=== PATIENT | female | born 1970 | race Caucasian/White ===

== ENCOUNTER → 2020-11-03 11:31 | Outpatient (CLI) | payer MEDICAID, SELFPAY ==
[2020-11-03 15:18] LABS: Absolute Lymphocyte Count 2.02 X10^3/uL (0.83-4.51); Absolute Neutrophil Count 7.8 X10^3/uL (2.0-7.7); Basophil# 0.06 X10^3/uL; Basophil% 0.6 % (0-1); Eosinophil# 0.21 X10^3/uL; Hematocrit 45.5 % (37-47); Hemoglobin 14.4 g/dL (12.0-15.0); Lymphocyte # 2.02 X10^3/ul (4.0); Lymphocyte % 18.8 % (19-41); Mean Corp Hgb Conc 31.6 g/dL (32-36); Mean Corpuscular Hgb 27.2 pg (27.0-32.0); Mean Platelet Vol. 12.7 fl (6.2-12.0); Monocyte# 0.65 X10^3/uL; NRBC Flagged by Analyzer 0 % (0-5); Neutrophil # 7.78 X10^3/uL (2.7-7.7); Neutrophil % 72.3 % (47-70); Platelet Count 287 K/mm3 (150-450); RBC Distribution Width CV 14.9 % (11.6-14.6); RBC Distribution Width SD 46.7 fl (35.1-43.9); Red Blood Count 5.29 M/mm3 (4.2-5.4); White Blood Count 10.8 K/mm3 (4.4-11.0)
[2020-11-03 15:45] LABS: ALB/GLOB Ratio 0.9 RATIO (0.9-2.4); AST(SGOT) 11 U/L (15-37); Alanine Aminotransfer ALT/SGPT 27 U/L (13-56); Albumin, Serum 3.7 g/dL (3.2-5.0); Alkaline Phosphatase 62 U/L (45-117); Anion Gap 5 (5-15); BUN 15 mg/dL (7-18); BUN/Creat Ratio 24.2 RATIO (10-20); Calcium,Total 9.2 mg/dL (8.5-10.1); Chloride 106 mmol/L (98-107); Cholesterol 155 mg/dL (200); Creatinine, Serum 0.62 mg/dL (0.55-1.02); EST Glomerular Filtration Rate 109 mL/min (>60); Est Glom Filt Rate - Afr Amer 132 mL/min (>60); Globulin 3.9 g/dL (2.2-4.2); Glucose 93 mg/dL (74-106); High Density Lipoprotein 58 mg/dL; Potassium 4.1 mmol/L (3.5-5.1); Protein, Total 7.6 g/dL (6.4-8.2); Sodium Level 139 mmol/L (136-145); Triglycerides 69 mg/dL; Very Low Density Lipoprotein 14 mg/dL (5-40)
[2020-11-03 15:46] LABS: Microalbumin,Random Urine 5.9 mg/L (NO RANGE EST.); Microalbumin:Creatinine Ratio 8.7 mg/g CRE (<30 mg/g CRE)
[2020-11-03 15:53] LABS: Vitamin D,25 Hydroxy 48.2 ng/mL
== END ==
PROVIDERS: PCP Family Medicine; Referring Provider Family Medicine; Visit Provider Family Medicine
DX: Z20.822 Contact with and (suspected) exposure to COVID-19 (principal); E11.9 Type 2 diabetes mellitus without complications; E55.9 Vitamin D deficiency, unspecified; D64.9 Anemia, unspecified; Z51.81 Encounter for therapeutic drug level monitoring
CPT/HCPCS: 36415; 80053; 80061; 82043; 82306; 82570; 85025; 86769; 86900; 86901

== ENCOUNTER → 2022-09-27 | Outpatient (CLI) | payer MEDICAID, SELFPAY ==
--- NOTE | 2022-09-27 08:21 | US_ITS ---
STUDY: ABDOMINAL ULTRASOUND - RIGHT UPPER QUADRANT REASON FOR VISIT: Female, 51 years old ABD PAIN/BLOATING TECHNIQUE: Ultrasound evaluation of the right upper quadrant was performed with real-time and static mendoza-scale imaging. TECHNICAL QUALITY: Adequate. COMPARISON: None. FINDINGS: Liver: The liver measures 17.4 cm. There is increased echogenicity consistent with fatty infiltration. The bile ducts are within normal limits. There is hepatic color flow. The direction of portal flow is hepatopetal. There is no demonstrated mass lesion. Gallbladder: There is a contracted gallbladder. The gallbladder wall is thickened and measures 4.1 mm. There is a negative sonographic Capellan''s sign. There is no pericholecystic fluid. There are multiple echogenic structures within the gallbladder, consistent with multiple gallstones. Common Bile Duct (C.B.D.): The common bile duct measures 5.2 mm. Pancreas: Normal size of the head, body and tail of the pancreas. There is increased echogenicity of the pancreas. There is no demonstrated pancreatic mass or cyst. Right Kidney: Normal size of the right kidney. The right kidney measures 11.4 cm x 5.8 cm x 5.5 cm. Normal renal cortex. The right cortex measures 2.0 cm. There is no demonstrated renal mass or cyst. There is no right hydronephrosis. US/Abdomen Limited IMPRESSION: Contracted stone filled gallbladder. Fatty infiltration of the liver. Electronically Signed: Juan Carlos Ellsworth MD at 12:41 EST ,
== END | disposition home or self-care (01) ==
LOC: US 08:19
PROVIDERS: PCP Family Medicine; Referring Provider Family Medicine; Visit Provider Family Medicine
DX: R10.11 Right upper quadrant pain (principal); R14.0 Abdominal distension (gaseous)
CPT/HCPCS: 76705

== ENCOUNTER → 2022-10-26 | Outpatient (CLI) | payer MEDICAID, SELFPAY ==
[2022-10-26 15:05] LABS: Absolute Lymphocyte Count 2.54 X10^3/uL (0.83-4.51); Absolute Neutrophil Count 5.1 X10^3/uL (2.0-7.7); Basophil# 0.06 X10^3/uL; Basophil% 0.7 % (0-1); Eosinophil# 0.25 X10^3/uL; Eosinophils% 2.9 % (0-5); Hematocrit 45.8 % (37-47); Hemoglobin 14.4 g/dL (12.0-15.0); Lymphocyte # 2.54 X10^3/ul (0.83-4.51); Lymphocyte % 29.9 % (19-41); Mean Corp Hgb Conc 31.4 g/dL (32-36); Mean Corpuscular Hgb 27.7 pg (27.0-32.0); Mean Corpuscular Volume 88.1 fL (81-99); Mean Platelet Vol. 12.1 fl (6.2-12.0); Monocyte# 0.53 X10^3/uL; Monocyte% 6.2 % (0-10); NRBC Flagged by Analyzer 0 % (0-5); Neutrophil % 60.1 % (47-70); Platelet Count 253 K/mm3 (150-450); RBC Distribution Width CV 14.1 % (11.6-14.6); RBC Distribution Width SD 45.5 fl (35.1-43.9); White Blood Count 8.5 K/mm3 (4.4-11.0)
== END | disposition home or self-care (01) ==
LOC: PAVLAB 14:41
PROVIDERS: PCP Family Medicine; Referring Provider Surgery; Visit Provider Surgery
DX: R10.9 Unspecified abdominal pain (principal)
CPT/HCPCS: 36415; 85025

== ENCOUNTER 2022-11-01 09:22 | Day surgery (SDC) | payer MEDICAID, SELFPAY ==
[2022-11-01] VITALS (9 sets, daily range): BP systolic 140–179; BP diastolic 74–92; PULSE 54–71; RESP 16–20; TEMP 36.4–37.2; O2SAT 94–100; BMI 47.2
[2022-11-01 09:46] LABS: Internal QC Validated? YES +Cl - CLEAR BKGD
[2022-11-01 09:49] LABS: Pregnancy, Urine Negative Negative
--- NOTE | 2022-11-01 09:49 | EKG12_ITS ---
Test Reason : PRE OP Blood Pressure : / mmHG Vent. Rate : 068 BPM Atrial Rate : 068 BPM P-R Int : 166 ms QRS Dur : 088 ms QT Int : 410 ms P-R-T Axes : 046 000 039 degrees QTc Int : 435 ms Normal sinus rhythm Normal ECG No previous ECGs available Confirmed by WAYLON SHORT, RITA ([id number]), development editor EMILIANO JACOBO ([id number]) on 11/07/2022 8:48:00 AM Referred By: Moriah Lunsford Confirmed By:RITA CONNORS MD
[2022-11-01] MEDS: Lactated Ringers 1,000 ML 15 ML IV ×2 (10:12→14:53)
--- NOTE | 2022-11-01 10:46 | HP.PCM_ITS ---
History and Physical Date of Admission: 11/01/22 Date of Service:? 10/26/22 MR#: [id number] Acct: [id number] Name:HOLA THOMAS Rep #: [id number] : 1970 ? ? Provider: Dr. Moriah Lunsford MD Age/Sex:? 51/F ? ? Location: [facility] Status: Signed Intake Vital Signs ? 10/26/2313:16 Weight: 278 lb BP 157/85 H Blood Pressure Location Rt brachial Position Sitting Respiration 17 Pulse 80 Pulse Source Monitor Temp 97.4 F L Temp Source Temporal Pulse Oximetry (%) 98 Oxygen Delivery Method room air Intake Visit Reasons:?GALLBLADDER Chief Complaint: gallbladder Is patient in pain?: No Allergies No Known Allergies Allergy (Unverified 10/26/22 14:18) Medications amlodipine 5 mg tablet 5 mg PO DAILY 10/26/22 [History Confirmed 10/26/22] ascorbate calcium (vitamin C) 500 mg tablet 500 mg PO DAILY 10/26/22 [History Confirmed 10/26/22] cholecalciferol (vitamin D3) 25 mcg (1,000 unit) capsule 25 mcg PO DAILY 10/26/22 [History Confirmed 10/26/22] escitalopram oxalate 10 mg tablet (Lexapro) 10 mg PO DAILY 10/26/22 [History Confirmed 10/26/22] lisdexamfetamine 30 mg capsule (Vyvanse) 30 mg PO DAILY 10/26/22 [History Confirmed 10/26/22] omega 0-lpr-dls-fish oil 60 mg-90 mg-500 mg capsule (Fish Oil) 1 cap PO DAILY 10/26/22 [History Confirmed 10/26/22] selenium 50 mcg tablet 50 mcg PO DAILY 10/26/22 [History Confirmed 10/26/22] vitamin B complex (B Complex-Vitamin B12 tablet) 1 tab PO DAILY 10/26/22 [History Confirmed 10/26/22] PFSH Family History?(Updated 10/26/22 @ 14:16 by Stefany Leos) Father Diabetes Heart disease Hypertension HPI HPI HPI: 51-year-old female presents due to gallstones.? Patient states that she has had several episodes 1 in May/June then in August and then in September and 1 last Sunday to Sunday.? Patient states these episodes she gets right upper quadrant/epigastric pain usually happens after eating 30 minutes to 1 hour.? Patient states it can take a while for the discomfort to go away.? Patient is unsure what aggravated the pain this Sunday to Sunday.? Patient does have nausea denies any vomiting.? Patient denies this epigastric pain in the middle of the night waking her up or before she ever eats in the morning.? Patient did have an ultrasound showed a gallbladder contracted with stones gallbladder wall was called 4 mm.? Patient's LFTs were within normal limits except for the AST which was low.??Patient's PCP did order Protonix 40 mg p.o. twice daily patient states she started taking them and felt like it made the bloating worse however this was also during one of her episodes. ROS General General: Yes weight change and fatigue; No appetite, colon cancer, breast cancer or weakness HEENT HEENT: No difficulty swallowing, eye injury, eye surgery, swollen glands or hoarseness Endo Endocrine: No thyroid disease, diabetes mellitus, thyroid cancer, Hair loss, heat intolerance or cold intolerance Skin Skin: No rash or changing moles Musc Musculoskeletal: No back problems, arthritis, rheumatoid arthritis, gout or joint pain Cardio Cardiovascular: Yes high blood pressure; No murmur, pacemaker, heart disease, atrial fibrillation, heart attack, heart stent, palpitations, shortness of breat with exertion or chest pain Psych Psychiatric: Yes anxiety; No depression or hearing voices Resp Respiratory: No shortness of breath, No sleep apnea, No cough, No COPD, No asth ma, No emphysema and No wheezing Gastro Gastrointestinal: Yes abdominal pain, Yes nausea or vomiting, Yes diarrhea, Yes constipation, No blood in stool, Yes acid reflux, No hemorrhoids, No ulcers, Yes gallbladder problem and No black,tarry stools Randell Hematologic: No blood thinners, No blood disorders, No bleeding, No anemia and No blood clots Neuro Neurologic: No system reviewed and no additional complaints, except as documented, No as per HPI, No abnormal gait, No abnormal hearing, No abnormal movements, No abnormal speech, No behavioral changes, No burning sensations, No confusion, No convulsions, No disequilibrium, No dizziness, No localized weakness, No frequent falls, No headache(s), No lack of coordination, No loss of vision, No memory loss, No numbness, No other visual disturbances, No radicular pain, No restless legs, No sensory deficit, No syncope, No tingling, No tremor(s), No weakness and No other Exam Const General: cooperative, healthy appearing, comfortable and no acute distress Nutritional Appearance: obese Resp Effort & Inspection: normal respiratory effort Cardio Rate: regular rate GI Inspection: non-distended Palpation: soft, no hernias and tender (Left upper quadrant greater than epigastric, no guarding or rebound) Skin General: no rashes or lesions noted Neuro General: patient oriented x3 Extrem General: normal to inspection Assessment and Plan Assessment and Plan (1) Cholelithiasis: ?Status:?Acute (2) LUQ abdominal pain: ?Status:?Acute (3) Epigastric abdominal pain: ?Status:?Acute ? ? ? Orders: Orders CBC W/Diff, Automated 10/26/22 R10.9 - Unspecified abdominal p ain ? Plan Encourage patient to continue taking her Protonix but okay for just 40 mg once a day.? Patient had previously stopped because she thought it was causing more bloating but she also was having episodes during that time as well.? Discussed with patient that her left upper quadrant pain is likely due to more gastritis or stomach related in the epigastric pain could be due to either stomach or her gallbladder. Reviewed the anatomy with the patient and discussed the procedure: laparoscopic cholecystectomy with possible cholangiograms, possible open. Review risks including but not limited to bleeding, infection, hernia, bile leak, retained gallstones requiring another procedure ERCP- Endoscopic Retrograde Cholangiopancreatography, injury to another organ (bile ducts, common bile duct, small bowel, etc.) and conversion to an open procedure. All questions were answered. Addendum: Patient CBC was within normal limits. Moriah Lunsford M.D. Pager: [phone] [facility] [address] [place] [address], [facility], [address] [place] [address] Office: [phone] Coding Level of Care Code Off vis,new,level 4 Diagnoses Cholelithiasis? K80.20 LUQ abdominal pain? R10.12 Epigastric abdominal pain? R10.13 10/27/22 1032 <Electronically signed by Moriah Lunsford MD> Date Moriah Lunsford MD
--- NOTE | 2022-11-01 11:00 | GALL_PTH ---
PATIENT: HOLA DINH [place] [facility] [id number] AGE/SX: 51/F ROOM: RE11/01/[address]: Dr. Moriah Lunsford MD : 1970 BED: DIS: 11/01/2022 SPEC #: [id number] RECD: 11/01/22 16:49 STATUS: [place] REKen #: [id number] EMMA: 11/01/22 11:[address]: Moriah Lunsford DEPT: SURGICAL PATHOLOGY RECD BY: Ewa Arzate ENTERED: 11/02/22 09:55 SP TYPE: KERRI GUERRA DR: Dr. Anna Mead DO Tissues: Gallbladder, NOS Procedures: Surgery Specimen Level III HEADER OPERATION: Laparoscopic cholecystectomy with IOC PRE-OP DIAGNOSIS: Cholelithiasis, LUQ abdominal pain, epigastric abdominal pain TISSUE SUBMITTED: Gallbladder MICROSCOPIC DIAGNOSIS Gallbladder, cholecystectomy: Cholesterolosis, chronic cholecystitis and cholelithiasis. AM:violet 11/03/2022 MICROSCOPIC DESCRIPTION Slides are reviewed. GROSS DESCRIPTION Received is one container labeled with the patient's name and designated gallbladder. The specimen consists of a gallbladder measuring 9.5 cm in length and up to 3.5 cm in diameter. The gallbladder is previously opened. The external surface is pink-be, smooth and glistening for the most part. Focally it is granular, hemorrhagic and contains cautery artifact. The gallbladder contains a small amount of green-yellow mucoid bile. Present in the gallbladder and also in the container are multiple light yellow, multifaceted stones measuring in aggregate 6.0 x 5.0 x 2.0 cm and 0.5 to 1.0 cm in greatest dimension. The mucosa is bile-stained and without any mass lesions. The gallbladder wall measures up to 0.3 cm in thickness. Electron Beam Operator sections from the gallbladder and the cystic duct are submitted in one cassette. / HAJA:violet 11/02/2022 TC:3 CPT: 46478
[2022-11-01] MEDS: Cefotetan 2 GM in 0.9% NS 100 ML IV (12:55)
--- NOTE | 2022-11-01 13:23 | RAD_ITS ---
CLINICAL HISTORY: Female, 51 years old. Cholecystectomy PROCEDURE: CHOLANGIOGRAM - intraoperative CONSENT: Informed consent obtained SEDATION: General FLUOROSCOPY TIME (if supplied): (0:11) minutes/seconds, 2 cine loops obtained, one with 28 fluoroscopic images, one with 32. Radiation dose of11.35 mGy Placement of the catheter and the procedure were performed by: Dr. Lunsford Fluoroscopy was provided by Yolanda Sarmiento, who was present in the room time of the procedure. TECHNIQUE: (All elements of maximal sterile barrier technique followed, including US elements as applicable) After cholecystectomy, the cystic duct) was cannulized and contrast injected in a retrograde manner. There is normal filling of the common hepatic duct as well as the biliary radicals. There is normal filling of the common bile duct and flow of contrast into the duodenum. No extravasation identified to suspect leak. RAD/Cholangiogram/ O R,Initial IMPRESSION: Normal intraoperative cholangiogram Electronically Signed: Abhilash Hou MD at 14:57 EDT ,
[2022-11-01] MEDS: Bupivacaine 0.25% 30 ML Vial (14:09)
--- NOTE | 2022-11-01 14:15 | OP.PCM_ITS ---
Report of Operation Date of Procedure: 11/01/22 Pre-Operative Diagnosis: Cholelithiasis, right upper quadrant pain Post-Operative Diagnosis: Same Surgery/Procedure Performed:: Laparoscopic cholecystectomy with cholangiograms Surgeon: Moriah Lunsford manager technical training: Justina Montgomery Type of Anesthesia: General/Supplemental Anesthesiologist: Angel Heath Special Medications: Cefotetan 2 g IV x1 Specimen's removed: Gallbladder and stones Estimated Blood Loss (mL): < 10 cc Description of Procedure: Indications: this is a 51 year-old female who developed right upper quadrant abdominal pain/nausea/vomiting and on workup was found to have cholelithiasis, with a normal common bile duct. Laparoscopic cholecystectomy was elected. Description procedure: The patient was placed on operating table in supine position. A timeout was completed verifying correct patient, procedure, site, position and special equipment prior to beginning procedure. General Anesthesia was induced. The abdomen was prepped and draped in usual sterile fashion. An incision was made in the natural skin line above the umbilicus. The fascia was elevated and incised. The peritoneum was elevated and incised. Entry into the peritoneum was confirmed visually and no bowel was noted in the v icinity of the incision. Masters trocar was placed. The abdomen was insufflated with carbon dioxide to a pressure of 12-15 mmHg. Patient tolerated insufflation well. The laparoscope was then inserted and abdomen inspected. No injuries from initial trocar placement were noted. Additional trochars were then inserted in the following locations 5 mm trocar in the epigastrium and 2 more 5 mm trochars along the right costal margin. The abdomen was inspected no abnormalities were found. The table is placed in reverse Trendelenburg position with the right side up. The dome of the gallbladder was grasped with atraumatic grasper passed through the lateral port and retracted over the dome of the liver. Infundibulum was then grasped with atraumatic grasper through the midclavicular port and r etracted to the right lower quadrant. This maneuver exposed Calot's triangle. The peritoneum overlying the gallbladder infundibulum was then incised and cystic duct and artery identified and circumferentially dissected. Delarosa catheter was used for cholangiograms. The cholangiogram showed good filling of the common bile duct into the duodenum with no filling defects, good filling of the right and left bile ducts as well. The cystic duct and artery were then doubly clipped and divided close to the gallbladder. The gallbladder then dissected from its peritoneal attachments by electrocautery . Hemostasis was checked and the gallbladder and contained stones were removed using the endoscopic retrieval bag through the umbilical port. The gallbladder is passed off table as specimen. The gallbladder fossa was irrigated with saline and hemostasis obtained. There is no evidence of bleeding from the gallbladder fossa or cystic artery leakage of bile from the cystic duct stump. Secondary trochars removed under direct vision. No bleeding was noted the trocar sites. The laparoscope was withdrawn and umbilical trocar removed. The abdomen was allowed to collapse. The fascia of the 12 mm trocar was closed with a yleepa-kg-imgor 0 Vicryl suture. The skin was closed with sutures of 4-0 Monocryl and Steri-Strips. The patient was extubated. The patient tolerated procedure well and was taken to the postanesthesia care unit in stable condition. Complications none
--- NOTE | 2022-11-01 14:17 | DCINST_ITS ---
Discharge Instructions Diet Discharge Diet: Light diet - advance as tolerated Activity Discharge Activity: May Not Drive (while taking narcotic pain medications.) May shower in (days): 1 Lifting Restrictions: no lifting >20 lbs x 2 wks, no strenuous exercise for 4 wks Dressing / Incision Call your doctor if your incision/area has: Continuous Slow Oozing, Sudden Increased Bleeding, Increased Pain/ Swelling, Increased Redness, Foul Smelling Discharge and Swelling at the incision site Call your doctor if you observe: Fever of 101 or Higher Remove Dressing in: 2 days Cleanse incision/area with: Soap & Water Additional Dressing/Incision Instructions:: Steri-Strips will fall off in 7 to 10 days, if they do not fall off okay to remove after 10 days. Follow Up Care Please Follow Up With: Moriah Lunsford MD When: Call the office for a follow-up appointment 2 weeks; after 5 PM and on the weekends call [phone] with any concerns. Test Results: Test results from this visit will be discussed in further detail at your follow- up appointment, if applicable. Discharge Plan Admission Attending Provider: Moriah Lunsford Primary Care Provider: Anna Mead Discharge Orders/Prescriptions Prescriptions: New oxycodone-acetaminophen 5-325 mg tablet 1 - 2 tab PO Q6H PRN (Reason: pain) 3 Days Qty: 14 0RF Continued amlodipine 5 mg tablet 5 mg PO DAILY escitalopram oxalate [Lexapro] 10 mg tablet 10 mg PO QHS Vyvanse 30 mg capsule 30 mg PO DAILY omega 7-god-dhk-fish oil [Fish Oil] 60-90-500 mg capsule 1 cap PO QODAY selenium 50 mcg tablet 50 mcg PO QODAY cholecalciferol (vitamin D3) 25 mcg (1,000 unit) capsule 25 mcg PO DAILY ascorbate calcium (vitamin C) 500 mg tablet 500 mg PO DAILY vitamin B complex [B Complex-Vitamin B12] Tablet 1 tab PO DAILY pantoprazole 40 mg Tablet,Delayed Release (Dr/Ec) 40 mg PO QHS ursodiol 500 mg Tablet 500 mg PO BID Referrals / Follow Up: Anna Mead DO [Primary Care Provider] - Disposition Disposition (needs filled in before D/C Order can be placed): Home, Self Care
--- NOTE | 2022-11-01 16:15 | SUR.PHASEII ---
PATIENT DID NOT WANT HER SCD'S ON AT THIS TIME.
[2022-11-01] MEDS: oxyCODONE 5 MG Tablet PO (16:21)
[2022-11-01] MEDS: Acetaminophen 325 MG Tablet PO (16:21)
== END 2022-11-01 17:23 | disposition home or self-care (01) ==
LOC: SDC 09:23 → AC 09:24
PROVIDERS: Anesthesiology; PCP Family Medicine; Referring Provider Surgery; Visit Provider Surgery
PROC: (CPT 47610; principal; 2022-11-01 10:40)
DX: K80.10 Calculus of gallbladder with chronic cholecystitis without obstruction (principal); I10 Essential (primary) hypertension
CPT/HCPCS: 47563; 00790; 74300; 76000; 81025; 88304; 93005; J7120; J2405